=== PATIENT | female | born 1975 | race Caucasian/White ===

== ENCOUNTER 2017-10-08 06:56 | Day surgery (SDC) | payer BC ==
--- NOTE | 2017-10-08 04:07 | PCM.PREANE ---
Preanesthetic Assessment - Anesthesia/Transfusion/Family Hx Anesthesia History: Prior Anesthesia Without Reaction Family History of Anesthesia Reaction: No Transfusion History: Prior Transfusion Without Reaction Intubation History: Unknown - Review of Systems General: No Symptoms Pulmonary: No Symptoms (Smoking history of 20pack/year. quit 2014) Cardiovascular: No Symptoms (HTN, after gastric bypass mild [place] noted 2009.) Gastrointestinal: No Symptoms (GERD), Constipation (chronic) Neurological: No Symptoms (history of fibromyalgia), Headache (migraine headaches), Numbness (diabetic neuropathy bilateral feet.) Other: Reports: Diabetes, Depression, Anxiety - Physical Assessment NPO Status Date: 10/07/17 NPO Status Time: 21:00 Pulse: 79 O2 Sat by Pulse Oximetry: 97 Respiratory Rate: 16 Blood Pressure: 133/90 Temperature: 36.2 C Height: 1.65 m Weight: 129.727 kg ASA Class: 3 Mental Status: Alert & Oriented x3 Airway Class: Mallampati = 2 Dentition: Reports: Broken Tooth/Teeth (left upper times one/ bottom right times two.), Caries Thyro-Mental Finger Breadths: 3 ROM/Head Extension: Full Lungs: Clear to Auscultation, Normal Respiratory Effort Cardiovascular: Regular Rate, Regular Rhythm, No Murmurs - Lab Values: MRSA screen negative. All labs reviewed and noted and within acceptable ranges to proceed with scheduled procedure. - Imaging/EKG Impressions: EKG: SR rate=64, Probable left ventricular hypertrophy, Anterior Q waves/ possibly due to LVH. CXR: negative - Allergies Allergies/Adverse Reactions: Allergies Allergy/AdvReac Type Severity Reaction Status Date / Time adhesive Allergy Hives Verified 10/06/17 16:13 varenicline [From Chantix] Allergy Hives Verified 10/06/17 16:13 - Anesthesia Plan Pre-Op Medication Ordered: Beta Radha Beta Radha: Metoprolol Med Last Dose Date: 10/07/17 Med Last Dose Time: 21:00 - Acknowledgements Anesthesia Type Planned: General Anesthesia, MAC (with Ankle Block per Dr. Lemus) Pt an Appropriate Candidate for the Planned Anesthesia: Yes Alternatives and Risks of Anesthesia Discussed w Pt/Guardian: Yes Pt/Guardian Understands and Agrees with Anesthesia Plan: Yes PreAnesthesia Questionnaire HEENT History: Reports: Impaired Vision, Other (See Below) Other HEENT History: has glassses, hearing aids Cardiovascular History: Reports: Hypertension Respiratory History: Reports: None Gastrointestinal History: Reports: GERD Genitourinary History: Reports: None [employer] History: Reports: Endometrial Ablation Musculoskeletal History: Reports: Fibromyalgia Neurological History: Reports: Migraines, Neuropathy, Diabetic, Other (See Below ) Other Neuro History: neuromuscular disorder Psychiatric History: Reports: Anxiety, Depression, Other (See Below) Other Psychiatric History: insomnia Endocrine/Metabolic History: Reports: Diabetes, Type II, Other (See Below) Other Endocrine/Metabolic History: hyperinsulinemia Hematologic History: Reports: None Immunologic History: Reports: None Oncologic (Cancer) History: Reports: None Dermatologic History: Reports: None - Past Surgical History HEENT Surgical History: Reports: Tonsillectomy, Other (See Below) Other HEENT Surgeries/Procedures: ear surgeries Respiratory Surgical History: Reports: None GI Surgical History: Reports: Bariatric Procedure, Cholecystectomy, EGD Female Surgical History: Reports: D&C, Oophorectomy, Tubal Ligation Male Surgical History: Reports: None Endocrine Surgical History: Reports: None Musculoskeletal Surgical History: Reports: Other (See Below) Other Musculoskeletal Surgeries/Procedures:: ganglion cyst excsion, right carpal tunnel release Oncologic Surgical History: Reports: None Dermatological Surgical History: Reports: Other (See Below) - SUBSTANCE USE Smoking Status *Q: Former Smoker Recreational Drug Use History: No - HOME MEDS Home Medications: Home Meds Amitriptyline [Elavil] 25 mg PO BEDTIME 10/06/17 [History] ClonazePAM [KlonoPIN] 1 mg PO DAILY 10/06/17 [History] Cyanocobalamin (Vitamin B-12) [Vitamin B-12] 1,000 mcg PO DAILY 10/06/17 [ History] DULoxetine HCl [Duloxetine HCl] 60 mg PO DAILY 10/06/17 [History] Dulaglutide [Trulicity] 0.5 ml SQ FR 10/06/17 [History] Gabapentin [Neurontin] 300 mg PO TID 10/06/17 [History] Lansoprazole [Prevacid] 30 mg PO DAILY 10/06/17 [History] Metoprolol Succinate [Metoprolol Succinate] 100 mg PO DAILY 10/06/17 [History] Multivitamin [Poly-Vitamin] 1 tab PO DAILY 10/06/17 [History] Triamcinolone Acetonide [Triamcinolone Acetonide 0.1% Crm] 1 dose TOP BID [History] - CURRENT (IN HOUSE) MEDS Current Meds: Current Medications Lactated Ringer's (Ringers, Lactated) 1,000 mls @ 125 mls/hr IV ASDIRECTED SAV Lidocaine/Sodium Bicarbonate (Buffered Lidocaine 1% In Ns 8.4%) 0.25 ml IV ONETIME PRN PRN Reason: Prior to IV Start Sodium Chloride (Saline Flush) 10 ml FLUSH ASDIRECTED PRN PRN Reason: Keep Vein Open Discontinued Medications Cefazolin Sodium (Ancef) Confirm Administered Dose 2 gm .ROUTE .STK-MED ONE Stop: 10/08/17 04:00 Fentanyl (Sublimaze) Confirm Administered Dose 100 mcg .ROUTE .STK-MED ONE Stop: 10/08/17 04:00 Hydromorphone HCl (Dilaudid) Confirm Administered Dose 1 mg .ROUTE .STK-MED ONE Stop: 10/08/17 04:02 Lidocaine HCl (Xylocaine-Mpf 1%) Confirm Administered Dose 10 mls @ as directed .ROUTE .STK-MED ONE Stop: 10/08/17 04:00 Midazolam HCl (Versed 1 Mg/Ml) Confirm Administered Dose 2 mg .ROUTE .STK-MED ONE Stop: 10/08/17 04:01 Ondansetron HCl (Zofran) Confirm Administered Dose 4 mg .ROUTE .STK-MED ONE Stop: 10/08/17 04:00 Propofol (Diprivan 20 Ml) Confirm Administered Dose 400 mg .ROUTE .STK-MED ONE Stop: 10/08/17 04:00
[~2017-10-08 06:56] MED LIST: HYDROmorphone 1 MG/ML Syringe ONE; Lactated Ringers 1,000 ML IV SCH; Lidocaine 1%/Sod Bicarbonate in NS 8.4% 1 ML Syringe IV PRN; Midazolam 1 MG/ML 2 ML SDV ONE; Ondansetron 4 MG/2 ML SDV ONE; Propofol 200 MG/20 ML SDV ONE; Sodium Chloride 0.9% 10 ML Syringe FLUSH PRN; ceFAZolin 1 GM Vial ONE; fentaNYL 100 MCG/2 ML SDV ONE
[2017-10-08] MEDS ORDERED: Lidocaine 1% 30 ML SDV ONE (07:11)
[2017-10-08] MEDS: Bupivacaine 0.5% 30 ML SDV ONE ×2 (08:03→08:40)
[2017-10-08] MEDS ORDERED: Midazolam 1 MG/ML 2 ML SDV IVPUSH PRN (08:12)
[2017-10-08] MEDS ORDERED: Ondansetron 4 MG/2 ML SDV IVPUSH PRN (08:12)
[2017-10-08] MEDS ORDERED: diphenhydrAMINE 50 MG/ML SDV IVPUSH PRN (08:12)
[2017-10-08] MEDS ORDERED: fentaNYL 100 MCG/2 ML SDV IVPUSH PRN (08:12)
[2017-10-08] MEDS ORDERED: HYDROmorphone 0.5 MG/0.5 ML Syringe IVPUSH PRN (08:12)
[2017-10-08] MEDS ORDERED: Ketamine 500 mg/10 ML MDV ONE (08:16)
--- NOTE | 2017-10-08 09:03 | PCM48HPAN ---
Post Anesthesia Note - EVALUATION WITHIN 48HRS OF ANESTHETIC Vital Signs in Normal Range: Yes Patient Participated in Evaluation: Yes Respiratory Function Stable: Yes Airway Patent: Yes Cardiovascular Function Stable: Yes Hydration Status Stable: Yes Pain Control Satisfactory: Yes Nausea and Vomiting Control Satisfactory: Yes Mental Status Recovered: Yes
--- NOTE | 2017-10-08 09:17 | PCM.OPNOTE ---
- General Post-Op/Procedure Note Date of Surgery/Procedure: 10/08/17 (\) Operative Procedure(s): 1.) Open Partial Plantar Fascial Release, RIGHT heel. 2.) Calcaneal Exostectomy, RIGHT heel Pre Op Diagnosis: 1.) Painful/Symptomatic Chronic Plantar Fasciosis, RIGHT heel. 2.) Painful/Symptomatic Inferior Calcaneal spur, RIGHT heel. Post-Op Diagnosis: Same Anesthesia Technique: Local, MAC Primary Surgeon: Eugene Lemus II Anesthesia Provider: Clari Huitron Drain/Tube Comments:: none Complications: None Free Text/Narrative:: Patient left the OR for recovery with vital signs stable & vascular status grossly intact to digits 1-5 RIGHT foot.
--- NOTE | 2017-10-08 10:57 | OR ---
DATE OF OPERATION: 10/08/2017 SURGEON: Eugene Lemus II, DPM LOCATION: [facility]. ANESTHESIA: MAC with local block about the right foot. ANESTHESIA PROVIDER: Clari Huitron CRNA HEMOSTASIS: Right pneumatic ankle tourniquet at 250 mmHg. PREOPERATIVE DIAGNOSIS: 1. Painful and symptomatic chronic plantar fasciosis, right heel. 2. Painful and symptomatic inferior plantar calcaneal spur, right heel. POSTOPERATIVE DIAGNOSIS: 1. Painful and symptomatic chronic plantar fasciosis, right heel. 2. Painful and symptomatic inferior plantar calcaneal spur, right heel. OPERATION PERFORMED: 1. Open partial plantar fascial release, right heel. 2. Calcaneal exostectomy, right heel. DESCRIPTION OF PROCEDURE: Upon arrival and admission to the hospital, the patient was examined and cleared for surgery by the assigned anesthesia provider. IV access was obtained in the preoperative area, after which the patient was brought to the OR via gurney and transferred to the operating room table in the supine position. She was given 3 g of Ancef IV piggyback in the form of prophylactic antibiotics. The patient was then brought to the OR and transferred on to the operating room table in supine position. The patient was given a combination of sedations and was adequately sedated before receiving 10 mL of 1:1 mixture of 1% lidocaine plain and 0.5% Marcaine plain in the form of local infiltrative block about the right heel. Anesthesia was tested and found to be adequate. The right lower extremity was wrapped with cotton Webril padding above the ankle joint for a nonsterile pneumatic ankle tourniquet, which was then draped with a sterile drape. Right lower extremity was then prepped and draped in the usual aseptic manner. The right lower extremity was then elevated and exsanguinated with the use of Esmarch bandage before inflating the right pneumatic ankle tourniquet to 250 mmHg pressure. The Esmarch bandage was removed and the right lower extremity was placed back to the level of the operating room table. Attention was then directed to the inferior medial aspect of the right plantar medial calcaneal tubercle where an approximately 4 cm linear incision was created overlying this area. This was a controlled depth skin incision taken down to the level of the subcutaneous structures with care taken to retract the vital neurovascular structures within the area as well as cauterize and/or ligate all superficial bleeders as deemed necessary. Continuous soft tissue dissection was taken down to the level of the plantar fascial ligament and a plane was established both superior and inferior to the plantar fascia ligament at its insertion at the inferior aspect of the calcaneus. With the use of a #15 blade, the medial 2/3rd of the ligament was released from the calcaneus and a small 1 cm portion of the ligament was excised from the wound in total. The exposed plantar spur was then smoothed to a fine contour after a rongeur was utilized to resect it. Trial of various sizes were then utilized to smooth any previously located inferior calcaneal spur to a fine contour. The wound was then copiously lavaged with sterile saline solution and closure was undertaken utilizing 3-0 Vicryl while the skin was reapproximated with 3-0 nylon in the form of vertical mattress, horizontal mattress, and simple interrupted suture knots. The patient received an additional 10 mL of 0.5% Marcaine plain and dressings consisted of Betadine soaked Adaptic gauze, 4 x 4 gauze, Perez, and Kendrick bandage. Upon completion of the surgery, the right pneumatic ankle tourniquet was deflated and was noted that the digits 1 through 5 of the right lower extremity became pink indicating normal vascular perfusion returned. The patient appeared to tolerate the procedure and anesthesia well. Left the OR for recovery with her vital signs being stable and vascular status intact digits 1 through 5 of the right lower extremity with no apparent complications. In recovery, the patient received written and oral postop instructions as well as postoperative pain medication. The patient will ambulate partial weightbearing as tolerated with a postoperative immobilization boot fitted and dispensed to the postoperative anesthesia care unit. The patient will ambulate partial weightbearing about the right foot and ankle within this immobilization boot. Estimated blood loss of the procedure was 5 mL and considered negligible. There were no noted complications. ESTIMATED BLOOD LOSS: MMODAL /[id number]
== END 2017-10-08 10:29 | disposition home or self-care (01) ==
LOC: JD.SDS 06:56 → EDBD 08:00 → JD.SDS 10:29
PROVIDERS: ATTEND Podiatrist Foot & Ankle Surgery
DX: M72.8 Other fibroblastic disorders (principal); M77.31 Calcaneal spur, right foot; I10 Essential (primary) hypertension; K21.9 Gastro-esophageal reflux disease without esophagitis; E11.42 Type 2 diabetes mellitus with diabetic polyneuropathy; F32.9 Major depressive disorder, single episode, unspecified; F41.9 Anxiety disorder, unspecified; I25.2 Old myocardial infarction; K59.09 Other constipation; M79.7 Fibromyalgia; G43.909 Migraine, unspecified, not intractable, without status migrainosus; Z87.891 Personal history of nicotine dependence; Z88.8 Allergy status to other drugs, medicaments and biological substances; Z79.84 Long term (current) use of oral hypoglycemic drugs; Z79.899 Other long term (current) drug therapy; Z98.84 Bariatric surgery status; Z90.49 Acquired absence of other specified parts of digestive tract; Z98.890 Other specified postprocedural states
CPT/HCPCS: 28119; 82962; J0690; J1170; J2250; J2405; J3010; J7120; 01480; J2704